=== PATIENT | female | born 1970 ===

== ENCOUNTER 2017-06-16 19:31 | Emergency (ER) | payer MEDICAID ==
[2017-06-16 20:00] VITALS: BP 133/72; PULSE 65; RESP 16; TEMP 97.2; O2SAT 98
[2017-06-16] MEDS ORDERED: Lidocaine 1% Inj (20ml) IJ ONE (20:57)
--- NOTE | 2017-06-16 21:18 | ED PDOC ---
Upper Extremity Pain/Injury Time Seen by Provider: 06/16/17 20:04 Chief Complaint (Nursing): Finger,Hand,&Wrist Chief Complaint (Provider): Left hand laceration History Per: Patient History/Exam Limitations: no limitations Onset/Duration Of Symptoms: Hrs ([facility]OOFER) Current Symptoms Are (Timing): Still Present Quality: "Pain" Additional Complaint(s): Neli Sumner is a 47 year old female, with no significant past medical history, who presents to the emergency department for a left hand laceration onset prior to arrival. Patient reports she accidentally cut her left hand while preparing food. Her tetanus shot is not up to date. She denies any numbness, decreased ROM or other injuries. No further medical complaints. PMD: Kelly Chow Past Medical History Reviewed: Historical Data, Nursing Documentation, Vital Signs Vital Signs: Last Vital Signs Temp 97.2 F L 06/16/17 19:58 Pulse 65 06/16/17 19:58 Resp 16 06/16/17 19:58 BP 133/72 06/16/17 19:58 Pulse Ox 98 06/16/17 19:58 - Medical History PMH: Gastritis - Surgical History Surgical History: No Surg Hx - Family History Family History: States: Unknown Family Hx - Social History Current smoker - smoking cessation education provided: No Alcohol: None Drugs: Denies - Immunization History Hx Tetanus Toxoid Vaccination: No - Allergies Allergies/Adverse Reactions: Allergies Allergy/AdvReac Type Severity Reaction Status Date / Time amoxicillin Allergy RASH Verified 06/16/17 19:58 Penicillins Allergy RASH Verified 06/16/17 19:58 "antibiotics" Allergy RASH Uncoded 06/16/17 19:58 Review of Systems ROS Statement: Except As Marked, All Systems Reviewed And Found Negative Musculoskeletal: Positive for: Hand Pain (left hand laceration) Neurological: Negative for: Numbness Physical Exam - Reviewed Nursing Documentation Reviewed: Yes Vital Signs Reviewed: Yes - Physical Exam Appears: Positive for: Well, Non-toxic, No Acute Distress Head Exam: Positive for: ATRAUMATIC, NORMAL INSPECTION, NORMOCEPHALIC Skin: Positive for: Normal Color, Warm, Dry Eye Exam: Positive for: Normal appearance Neck: Positive for: Painless ROM, Supple Respiratory: Negative for: Respiratory Distress Extremity: Positive for: Normal ROM (left hand), Capillary Refill (normal <2 sec ), Other (3cm laceration to thenar aspect of left palm. Normal sensation and strength). Negative for: Deformity, Swelling Neurologic/Psych: Positive for: Alert, Oriented (x3). Negative for: Motor/ Sensory Deficits - ECG O2 Sat by Pulse Oximetry: 98 (RA) Pulse Ox Interpretation: Normal Medical Decision Making Medical Decision Making: Initial Impression: Hand laceration Initial Plan: --Adacel 0.5 ml IM --Lidocaine 1% 5 ml IJ --reevaluation The wound is 3cm located in the thenar aspect of the L hand. The wound was copiously irrigated with normal saline. The wound was prepped and draped in the normal sterile fashion. The wound was explored for foreign bodies and none were found. The wound was anesthetised using lidocaine 1%. The edges were reapproximated using x3 5.0 nylon sutures by NAGI. Bleeding was well controlled and the patient tolerated the procedure well. Clean dressing applied by NAGI. 21:32 Advised to follow up with primary care physician in 1-2 days without fail. Advised to have sutures removed after 7 days. Instructed on proper wound care. Return to the emergency room at any time for any new or worsening symptoms. Patient states she fully agrees with and understands discharge instructions. States that she agrees with the plan and disposition. Verbalized and repeated discharge instructions and plan. I have given the patient opportunity to ask any additional questions. ~ Scribe Attestation: Documented by Dmitry Abreu, acting as a scribe for Elisha Oh PA-C. Provider Scribe Attestation: All medical record entries made by the Scribe were at my direction and personally dictated by me. I have reviewed the chart and agree that the record accurately reflects my personal performance of the history, physical exam, medical decision making, and the department course for this patient. I have also personally directed, reviewed, and agree with the discharge instructions and disposition. Disposition - Clinical Impression Clinical Impression: Hand laceration - Patient ED Disposition Is Patient to be Admitted: No Counseled Patient/Family Regarding: Diagnosis, Need For Followup - Disposition Disposition: Routine/Home Disposition Time: 21:34 Condition: STABLE Additional Instructions: Thank you for letting us take care of you today. You were treated for hand laceration. The emergency medical care you received today was directed at your acute symptoms. Have sutures removed after 7 days. Return to the Emergency Department if your symptoms worsen, do not improve, or if you have any other problems. Please contact your doctor in 2 days for re-evaluation and follow up. Bring any paperwork you were given at discharge with you along with any medications you are taking to your follow up visit. Our treatment cannot replace ongoing medical care by a primary care provider (PCP) outside of the emergency department. Thank you for allowing the [facility] team to be part of your care today. 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
== END 2017-06-16 22:15 | disposition home or self-care (01) ==
LOC: H.ER 19:31
DX: S61.412A Laceration without foreign body of left hand, initial encounter (principal); W26.0XXA Contact with knife, initial encounter; Y92.000 Kitchen of unspecified non-institutional (private) residence as the place of occurrence of the external cause; Z88.0 Allergy status to penicillin

== ENCOUNTER 2017-06-24 10:57 | Emergency (ER) | payer MEDICAID ==
[2017-06-24 11:06] VITALS: BMI 33.0
[2017-06-24 11:07] VITALS: BP 122/73; PULSE 73; RESP 20; TEMP 98.3; O2SAT 96
--- NOTE | 2017-06-24 11:16 | ED PDOC ---
HPI: Wound Care - HPI Time Seen by Provider: 06/24/17 11:16 Chief Complaint (Nursing): Suture/Staple Removal Chief Complaint (Provider): suture removal History Per: Patient Additional Complaint(s): 47-year-old right-hand dominant female presents to emergency department for suture removal of laceration to left hand repaired 8 days ago. Patient states tetanus is up-to-date. She denies any pain, drainage or bleeding. PMD: Dr. Geraldo Mendoza Past Medical History Reviewed: Historical Data, Nursing Documentation, Vital Signs Vital Signs: Last Vital Signs Temp 98.3 F 06/24/17 11:07 Pulse 73 06/24/17 11:07 Resp 20 06/24/17 11:07 BP 122/73 06/24/17 11:07 Pulse Ox 96 06/24/17 11:07 - Medical History PMH: Gastritis - Family History Family History: States: No Known Family Hx - Living Arrangements Living Arrangements: With Family - Social History Current smoker - smoking cessation education provided: No Alcohol: None Drugs: Denies - Immunization History Hx Tetanus Toxoid Vaccination: Yes - Allergies Allergies/Adverse Reactions: Allergies Allergy/AdvReac Type Severity Reaction Status Date / Time amoxicillin Allergy RASH Verified 06/16/17 19:58 Penicillins Allergy RASH Verified 06/16/17 19:58 "antibiotics" Allergy RASH Uncoded 06/16/17 19:58 Review of Systems ROS Statement: Except As Marked, All Systems Reviewed And Found Negative Constitutional: Negative for: Fever Musculoskeletal: Positive for: Other (suture removal, laceration to left hand) Physical Exam - Reviewed Nursing Documentation Reviewed: Yes Vital Signs Reviewed: Yes - Physical Exam Appears: Positive for: Well, Non-toxic, No Acute Distress Skin: Negative for: Rash Eye Exam: Positive for: Normal appearance Extremity: Positive for: Other (Well-healed sutured laceration noted to palmar aspect of left hand, no infection noted, neurovascular intact) Neurologic/Psych: Positive for: Alert, Oriented - ECG O2 Sat by Pulse Oximetry: 96 Pulse Ox Interpretation: Normal Medical Decision Making Medical Decision Makin-year-old female here for suture removal. 3 sutures removed from left hand without any difficulty, wound is well-healed with no infection. Wound care instructions provided. Disposition - Clinical Impression Clinical Impression: Removal of suture - Patient ED Disposition Is Patient to be Admitted: No Counseled Patient/Family Regarding: Diagnosis, Need For Followup - Disposition Referrals: [facility] [Outside] Disposition: Routine/Home Disposition Time: 11:29 Condition: STABLE Additional Instructions: Keep wound clean and dry. Follow up as needed with primary care doctor. Instructions: Stitches Removal (ED) Forms: [employer] (Arabic)
== END 2017-06-24 11:49 | disposition home or self-care (01) ==
LOC: H.ER 10:57
DX: Z48.02 Encounter for removal of sutures (principal); Z88.0 Allergy status to penicillin

== ENCOUNTER 2017-07-13 07:23 | Day surgery (SDC) | payer MEDICAID ==
[2017-07-13] MEDS ORDERED: Lactated Ringer's 1,000 ML IV ONE (07:50)
[2017-07-13] MEDS ORDERED: Propofol 10 mg/ml Inj (20 ML) ONE (09:23)
[2017-07-13 09:44] VITALS: RESP 18; TEMP 97
[2017-07-13 09:59] VITALS: BP 100/60; PULSE 59; O2SAT 99
== END 2017-07-13 10:45 | disposition home or self-care (01) ==
LOC: H.ENDO 07:23
PROVIDERS: ATTEND Internal Medicine Gastroenterology
DX: K30 Functional dyspepsia (principal); K21.9 Gastro-esophageal reflux disease without esophagitis; K29.50 Unspecified chronic gastritis without bleeding; K29.80 Duodenitis without bleeding
CPT/HCPCS: 43239; 88305; J2704; J7120